=== PATIENT | male | born 1975 | race Caucasian/White ===

== ENCOUNTER → 2017-07-16 | Outpatient (CLI) | payer BC | LOC: COL.RAD 10:34 | DX: K57.30 Diverticulosis of large intestine without perforation or abscess without bleeding (principal); M43.16 Spondylolisthesis, lumbar region; M47.816 Spondylosis without myelopathy or radiculopathy, lumbar region; K76.0 Fatty (change of) liver, not elsewhere classified | CPT/HCPCS: Q9967 ==

== ENCOUNTER 2019-01-02 19:31 | Inpatient (IN) | payer BC ==
[~2019-01-02] VITALS: Ht 165.1 cm; Wt 89.4 kg
--- NOTE | 2019-01-02 03:03 | NUR ---
PATIENT ADMITTED TO ROOM 308 FROM ER FOR OBSERVATION. ADMITTED FOR SIGMOID DIVERTICULITIS. PATIENT ARRIVED TO THE FLOOR AMBULATING WITH ER STAFF. A/O X 4. ATTITUDE CALM AND PLEASANT. REPORTING C/O ABD PAIN WITH NAUSEA. HPOACTIVE BS AUSCULTATED IN ALL QUADRANTS. LUNG SOUNDS CTA IN ALL SPICER. SEE FLOWSHEET FOR FVS WNL. DENIES NEEDING INTERVENTIONS FOR PAIN. IV CIPRO AND FLAGYL INFUSING ORDERED THROUGH RIGHT AC 20G IV SITE WNL. NS HUNG INFUSING AT 125ML/HR ORDERED. DISCUSSED NPO STATUS, AND PLAN OF CARE WITH PATIENT NO QUESTIONS OR CONCERNS VOICED AT END OF VISIT. DR BHATT GENERAL SURGEON ADMITTING. CURRENTLY PATIENT BEING TREATED WITH IV FLUIDS, IV ANTIBIOTICS, PAIN MEDICATIONS AND NPO. ALLERGIES AND HOME MEDICATIONS REVIEWED WITH PATIENT.
[2019-01-02 20:08] LABS: BASO % 0.3 % (0.0-2.0); EOS % 0.1 % (0-4.0); GRAN # 8.9 (1.4-6.5); GRAN % 77.2 % (42.2-75.2); HEMATOCRIT 41.3 % (42.0-52.0); LYMPH # 1.4 (1.2-3.4); LYMPH % 12.5 % (20.0-51.0); MEAN CELL VOLUME 89 fl (80.0-100.0); MEAN CORPUSCULAR HEMOGLOBIN 30 pg (27.0-31.0); MEAN CORPUSCULAR HGB CONC 34 g/dl (33.0-37.0); MEAN PLATELET VOLUME 9.1 fl (7.4-10.4); MONO # 1.1 (0.1-0.6); MONO % 9.6 % (1.7-9.3); PLATELET COUNT 218 K/mm3 (130-400); RED BLOOD COUNT 4.65 M/mm3 (4.20-5.60); REDCELL DISTRIBUTION WIDTH-CV 12.6 % (11.5-14.5)
[2019-01-02 20:26] LABS: ALBUMIN 4.2 gm/dL (3.5-5.0); BILIRUBIN,TOTAL 0.8 mg/dL (0.0-1.0); CALCIUM 9.2 mg/dL (8.4-10.2); CREATININE, serum 1.09 (0.66-1.25); POTASSIUM 3.6 mmol/L (3.4-5.0); TOTAL PROTEIN 7.3 gm/dL (6.4-8.2)
[2019-01-02 20:37] LABS: C-REACTIVE PROTEIN 19.4 mg/dL (0.0-0.9)
[2019-01-02] MEDS ORDERED: NORCO 325 MG-51 TAB PO (23:39)
[2019-01-02] MEDS ORDERED: CEPHALEXIN500 M1 PO (23:40)
[2019-01-02] MEDS ORDERED: FLAGYL500 MG PO (23:41)
[2019-01-03] VITALS (9 sets, daily range): BP systolic 101–139; BP diastolic 41–86; PULSE 56–96; TEMP 98–100.1
--- NOTE | 2019-01-03 07:27 | NUR ---
PATIENT SLEPT THROUGH THE NIGHT WITH NO C/O PAIN. DID NOT REQUEST PAIN MEDICATION. NS CONTINUES AT 125MLS/HR. REPORT GIVEN TO RON HEMPHILL.
--- NOTE | 2019-01-03 08:37 | NUR ---
Patient is awake and alert up and around in the room. States he is feeling much better and is anxious to go home. States he is having a dull pain on the left side of his abdomen which is rated 3-4/10. He states it is his typical pain that he has when his flares happen at home. Respirations are even and non-labored, is not short of breath. Currently up and walking in hallway. Call light is readily available while in room.
[2019-01-03 09:20] LABS: BASO % 0.3 % (0.0-2.0); EOS # 0.1 (0.0-0.7); EOS % 0.6 % (0-4.0); GRAN # 9.2 (1.4-6.5); GRAN % 77.8 % (42.2-75.2); HEMATOCRIT 41.7 % (42.0-52.0); HEMOGLOBIN 13.8 g/dl (13.5-18.0); LYMPH # 1.3 (1.2-3.4); LYMPH % 10.9 % (20.0-51.0); MEAN CELL VOLUME 91 fl (80.0-100.0); MEAN CORPUSCULAR HEMOGLOBIN 30 pg (27.0-31.0); MEAN CORPUSCULAR HGB CONC 33 g/dl (33.0-37.0); MEAN PLATELET VOLUME 9.1 fl (7.4-10.4); MONO # 1.2 (0.1-0.6); MONO % 10.1 % (1.7-9.3); PLATELET COUNT 244 K/mm3 (130-400); RED BLOOD COUNT 4.61 M/mm3 (4.20-5.60); REDCELL DISTRIBUTION WIDTH-CV 12.7 % (11.5-14.5)
[2019-01-03 09:34] LABS: ALBUMIN 4.1 gm/dL (3.5-5.0); POTASSIUM 4.1 mmol/L (3.4-5.0); TOTAL PROTEIN 7.3 gm/dL (6.4-8.2)
--- NOTE | 2019-01-03 11:45 | NUR ---
First visit from the bsw. no needs right now.
--- NOTE | 2019-01-03 18:15 | NUR ---
Patient is resting in bed, eyes are closed. Daughter is at bedside. Fluid rate decreased per order. Call light and personal items are within reach.
--- NOTE | 2019-01-03 23:30 | NUR ---
PATIENT REFUSING IV FLUIDS AT THIS TIME STATES "THE PUMP IS TO LOUD AND I CANT GET TO SLEEP". HAS TAKEN IN APPROX 500ML ORAL FLUIDS WITH NO NAUSEA OR VOMITING.
[2019-01-04 04:11] VITALS: BP 111/69; PULSE 68; TEMP 98.1
[2019-01-04 05:59] LABS: BASO % 0.3 % (0.0-2.0); EOS # 0.1 (0.0-0.7); EOS % 1.8 % (0-4.0); GRAN # 5.1 (1.4-6.5); GRAN % 63.8 % (42.2-75.2); HEMATOCRIT 37.9 % (42.0-52.0); HEMOGLOBIN 12.7 g/dl (13.5-18.0); LYMPH # 1.8 (1.2-3.4); LYMPH % 22.9 % (20.0-51.0); MEAN CELL VOLUME 91 fl (80.0-100.0); MEAN CORPUSCULAR HEMOGLOBIN 30 pg (27.0-31.0); MEAN CORPUSCULAR HGB CONC 34 g/dl (33.0-37.0); MEAN PLATELET VOLUME 9.3 fl (7.4-10.4); MONO # 0.9 (0.1-0.6); MONO % 10.8 % (1.7-9.3); PLATELET COUNT 200 K/mm3 (130-400); RED BLOOD COUNT 4.19 M/mm3 (4.20-5.60); REDCELL DISTRIBUTION WIDTH-CV 12.5 % (11.5-14.5)
[2019-01-04 06:10] LABS: ALBUMIN 3.5 gm/dL (3.5-5.0); CALCIUM 8.8 mg/dL (8.4-10.2); CREATININE, serum 1.03 (0.66-1.25); PHOSPHOROUS 3.4 mg/dL (2.5-4.5); POTASSIUM 3.8 mmol/L (3.4-5.0)
[2019-01-04 09:00] VITALS: BP 132/88; PULSE 73; TEMP 98
--- NOTE | 2019-01-04 10:21 | NUR ---
Plan: To return home in [facility] with Shanika as care support . Assess: Patient reports that his pcp is Dr. Contreras and he obtains RX from [facility] in [facility]. Patient denies the use of any DME. Patient denies any medication issues. Patient denies any care concerns. Action: Home, no additional needs.
[2019-01-04 13:36] VITALS: BP 127/87; PULSE 64; TEMP 98.1
[2019-01-04] MEDS ORDERED: CIPRO 500MG TA500 MG PO (16:52)
[2019-01-04] MEDS ORDERED: FLAGYL500 MG PO (16:53)
--- NOTE | 2019-01-04 17:30 | NUR ---
Reviewed discharge insructions and medications with patient. Personal belongings sent with patient. Declined wheelchair. Discharged VIA private vehicle.
== END 2019-01-04 17:25 | disposition home or self-care (01) | DRG 392 ==
LOC: COL.ER 19:31 → MEDICAL 22:24
PROVIDERS: Emergency Medicine; ADMIT Surgery
DX: K57.32 Diverticulitis of large intestine without perforation or abscess without bleeding (principal)
CPT/HCPCS: A9284; G0378; J0744; J2405; J3010; J7030; J7120; Q9967